=== PATIENT | female | born 1995 | race Caucasian/White ===

== ENCOUNTER 2017-11-23 08:13 | Inpatient (IN) ==
[2017-11-23] MEDS ORDERED: Famotidine 20 MG/2 ML VIAL IVP PRN (08:19)
[2017-11-23] MEDS ORDERED: Ondansetron 4 MG/2 ML VIAL IVP PRN (08:19)
[2017-11-23] MEDS ORDERED: *HR* Nalbuphine 10 MG/ML AMPUL IVP PRN (08:19)
[2017-11-23] MEDS ORDERED: Metoclopramide 10 MG/2 ML VIAL IVP PRN (08:19)
[2017-11-23] MEDS ORDERED: Ringers Solution, Lactated 1,000 ML IVC SCH (08:30)
[2017-11-23] MEDS: miSOPROStol 25 MCG TABLET PO PRN ×2 (09:17→13:40)
[2017-11-23 09:42] LABS: Basophils % 0.2 %; Eosinophils % 0.3 %; Hematocrit 36.1 % (35.3-44.9); Hemoglobin 12.2 g/dL (11.5-15.4); Immature Granulocytes % 0.8 % (0-4); Lymphocytes # 1.4 K/mcL (0.6-4.6); Mean Corpuscular HGB Conc 33.8 g/dL (31.6-35.5); Mean Corpuscular Hemoglobin 27.7 pg (28.0-33.3); Mean Platelet Volume 11.6 fL (9.4-12.4); Monocytes % 7.9 %; Neutrophils # 10.3 K/mcL (1.6-8.9); Platelet Count 200 K/mcL (140-400); Red Cell Distribution Width 12.8 % (11.5-14.5); Segmented Neutrophils % 79.8 %
[2017-11-23 10:23] LABS: Amphetamine Screen,Urine Negative ng/mL (Cutoff=1000); Barbiturate Screen,Urine Negative ng/mL (Cutoff=200); Benzodiazepines Screen,Urine Negative ng/mL (Cutoff=200); Cannabinoid Screen,Urine Positive ng/mL (Cutoff = 50); Cocaine Screen,Urine Negative ng/mL (Cutoff= 300); Opiate Screen,Urine Negative ng/mL (Cutoff=300); Phencyclidine Screen,Urine Negative ng/mL (Cutoff=25)
[2017-11-23] MEDS ORDERED: Aminoglycoside Consult 1 EACH MC ONE (12:01)
[2017-11-23] MEDS ORDERED: Lidocaine -MPF 1% 5 ML AMPUL ONE (19:26)
[2017-11-23] MEDS ORDERED: Epidural Premix (fent/bupiv) 110 ML EP SCH (19:30)
--- NOTE | 2017-11-23 20:17 | Anesthesia Evaluation PreOp ---
Date of Encounter: 11/23/17 Time of Encounter: 21:30 - Past History Planned Operation: phillip Cardiac History: Denies any Significant Hx Pulmonary History: Smoker, Asthma RECRUITMENT MANAGER History: Denies Any Significant HX Other Medical History: Denies Any Significant HX Anesthesia History: No Prior Anesthetic Complications, Past Anesthesia : Yes Test: Positive Alcohol Use: none Drug use: none, marijuana Medications and Allergies Vit/Iron Fumarate/FA [ Tablet] 1 tab PO DAILY 11/23/17 [History ] Promethazine [Phenergan] 25 mg PO 11/23/17 [History] valACYclovir [Valtrex] 1,000 mg PO BID 11/23/17 [History] 3 Allergy/AdvReac Type Severity Reaction Status Date / Time Penicillins Allergy Rash Verified 11/23/17 08:35 codeine AdvReac Agitated Verified 11/23/17 08:35 - Meds/Allergy Pre-op Review Medications Reviewed: Yes Allergies Reviewed: Yes Beta Blockers on Current Med List: No Anesthesia Results - Labs 11/23/17 08:55 Anesthesia Exam Height: 65 Weight: 195kg NPO (# of Hours): mn Pain Scale: 0 - HEENT Pupil (Motor): Pupils equal Mallampati: II Teeth: Normal Oral Opening: Greater than 3 - RECRUITMENT MANAGER LOC: Oriented RECRUITMENT MANAGER Motor: Normal RUE, Normal LUE, Normal RLE, Normal LLE, Normal Face RECRUITMENT MANAGER Sensory: Normal: RUE, LUE, RLE, LLE, Face - Cardiac Rhythm: Regular Murmur: None JVD: No Carotid Bruit: No - Pulmonary Breath Sounds: bilateral Clear Respiratory Effort: Symmetrical Anesthesia Assess/Plan ASA Score: 2 Modified Winsome Scale for Level of Consciousness: Cooperative, oriented, and tranquil (patient asked if she has safe enviroment at home states yes) Anesthetic Plan: Regional Autologous Blood: No Monitoring Plan: Standard Monitors (states she has a herniated disc at L4 asked pt if she felt safe at home she st)
--- NOTE | 2017-11-23 20:28 | Anesthesia Procedures ---
Date of Encounter: 11/23/17 Time of Encounter: 19:30 Procedures: Anesthesia - Epidural/Spinal Patient ID/Chart reviewed: Yes Patient examined: Yes OB Eval: : 1 OB Eval: Hx Para: 0 OB Eval: Dilated at (cm): 4 OB Eval: Contractions: Non-stressed pattern Consent Obtained: Yes Supplemental Oxygen: None/Room Air Site Prep: Aseptic Technique, Sterile prep and drape, Povidone-Iodine 1% Patient position: upright Amount of Local Anesthetic used: 3 Touhy Needle Gauge: 18 Touhy Needle Depth (cm): 7 Catheter Depth at Skin (cm): 12 Test Dose (1.5% Lido + Epi): Volume given (mls): 3 Test Dose Result: Negative Loading Dose: 0.25% Marcaine (mls): 5 Loading Dose Administered: Thru Catheter Infusion Rate (mls/hr): [address]: Tegaderm, Tape Interspace Used: L3-L4 Loss of Resistance (VERNELL): Yes Blood: No CSF: No Paresthesia: No Vitals + FHT's: stable throughout see nursing notes
--- NOTE | 2017-11-23 21:36 | OB/GYN History & Physical ---
Date of Encounter: 11/23/17 Time of Encounter: 21:34 Assessment and Plan (1) 39 weeks gestation of Current visit: Yes Status: Acute Will admit pt to L&D, plan induction. Pt is pos for GBBS and has pcn allergy. Will begin Vancomycin. sensitivity studies are good for Vancomycin. (2) 39 weeks gestation of Current visit: Yes Status: Acute History of Present Illness Chief complaint: Here for induction of labor HPI: Ms. Barlow is a 22 year old female female presents for induction. complicated by abnormal one hour GCT, didn't get 3 hr GTT but A1C last week was WNL. She reports +GFM, no VB or lof. Past Med Surg Social Fam HX - Past Medical History Source: patient, old records reviewed Medical history: asthma Psychiatric history: anxiety, depression - Past Surgical History Additional surgical history: tonsillectomy and hernia repair - Social History Smoking Status: Current every day smoker Packs per day: 0.25 Smokeless Tobacco Status: No Alcohol use: none Drug use: none, marijuana - Family History Maternal Grandmother Hx Family Medical Disorders: Yes (breast cancer) Obstetrical History - Pregnancies : 1 Medications and Allergies Vit/Iron Fumarate/FA [ Tablet] 1 tab PO DAILY 11/23/17 [History ] Promethazine [Phenergan] 25 mg PO 11/23/17 [History] valACYclovir [Valtrex] 1,000 mg PO BID 11/23/17 [History] 3 Allergy/AdvReac Type Severity Reaction Status Date / Time Penicillins Allergy Rash Verified 11/23/17 08:35 codeine AdvReac Agitated Verified 11/23/17 08:35 Exam - Constitutional Constitutional: well developed, well nourished, no acute distress - HEENT HEENT: EOMI, PERRL - Neck Neck exam: full ROM - Lungs Respiratory exam: CTAB - Cardiovascular Cardiovascular exam: RRR - Abdomen Abdomen: Present: bowel sounds normal Results Result Diagrams: 11/23/17 08:55 Abnormal lab results WBC 12.9 K/mcL (4.3-11.1) H 11/23/17 08:55 MCV 82.0 fL (83.0-100.0) L 11/23/17 08:55 MCH 27.7 pg (28.0-33.3) L 11/23/17 08:55 Neutrophils # 10.3 K/mcL (1.6-8.9) H 11/23/17 08:55 U Marijuana (THC) Screen Positive ng/mL (Cutoff = 50) H 11/23/17 08:55 All other labs normal. - VTE Reasons for not Prescribing Prophylaxis: Treatment not Indicated - Low risk for VTE
--- NOTE | 2017-11-23 22:01 | OB Labor Progress Note ---
Date of Encounter: 11/23/17 Time of Encounter: 18:00 Labor Progress Note - Subjective Subjective: Pt with cramping s/p cytotec # 2. - Cervix Cervix: 3-4/80/-2 - Heart Tones Heart Tones: RNST - Stuckey Stuckey: Irritability - Interventions Interventions: AROM clear - Plan Plan: Expect .
[2017-11-23] MEDS ORDERED: Oxytocin 20 units/ LR 1000 mL 20 UNIT/1,000 ML BAG IVC ONE (23:02)
--- NOTE | 2017-11-24 00:50 | OB/GYN Procedure Note ---
Delivery - Delivery Date: 11/24/17 Provider: Jeff Morales Intrapartum events: none Delivery induction: AROM Delivery monitor: internal FHT, internal uterine Anesthesia: epidural Quantitated Blood Loss: 450 - Infant (s) Infant A Delivery Date: 11/24/17 Infant Delivery Time: 00:06 Presentation: vertex Position: LEISA Route of delivery: Gender: Male Viability: Viable Pounds: 8 Ounces: 4 at 1 minute: 8 at 5 mins: 8 Shoulder Dystocia: not encountered Specimens collected: cord blood Placenta: spontaneous Cord: 3 umbilical vessels - Repair Episiotomy: none Laceration Description: Perineal - 2nd Degree - Complications Delivery complications: none - Comments Comments: Pt s/p of liveborn male 8lb 4oz with apgars 8 at 1 min and 8 at 5 min. Pt had spontaneous delivery of normal placenta with 3 vc. 2 nd degree laceration repaired with 3-0 Vicryl under epidural anesthesia. EBL 450cc. MSF noted at AROM. Resp therapy and nursery personnel in attendance at delivery.
[2017-11-24] MEDS ORDERED: Measles/Mumps/Rubella Vacc 0.5 ML VIAL SQ PRN (02:31)
[2017-11-24] MEDS ORDERED: Oxytocin 20 units/ LR 1000 mL 20 UNIT/1,000 ML BAG IVC SCH (02:31)
[2017-11-24] MEDS ORDERED: Rho Immune Globulin 1,500 UNIT SYRINGE IM PRN (02:31)
[2017-11-24 06:58] LABS: Basophils % 0.1 %; Hematocrit 28.5 % (35.3-44.9); Hemoglobin 9.7 g/dL (11.5-15.4); Immature Granulocytes % 0.5 % (0-4); Lymphocytes % 7.2 %; Mean Corpuscular Hemoglobin 27.7 pg (28.0-33.3); Mean Corpuscular Volume 81.4 fL (83.0-100.0); Mean Platelet Volume 11.3 fL (9.4-12.4); Monocytes # 1.1 K/mcL (0.0-1.3); Monocytes % 7.6 %; Neutrophils # 11.9 K/mcL (1.6-8.9); Platelet Count 173 K/mcL (140-400); Segmented Neutrophils % 84.6 %
[2017-11-24] MEDS: valACYclovir 500 MG TABLET PO SCH ×2 (08:53→20:51)
[2017-11-24] MEDS: Prenatal Vit/FA 1 EACH TABLET PO SCH (08:53)
[2017-11-24] MEDS: Acetaminophen 325 MG TABLET PO PRN ×2 (12:53→20:51)
[2017-11-25] MEDS: Acetaminophen 325 MG TABLET PO PRN (03:02)
[2017-11-25 07:29] VITALS: BP 113/69
[2017-11-25] MEDS: Prenatal Vit/FA 1 EACH TABLET PO SCH (08:53)
[2017-11-25] MEDS: valACYclovir 500 MG TABLET PO SCH (08:54)
--- NOTE | 2017-11-25 09:07 | Discharge Summary ---
Date of Encounter: 11/25/17 Time of Encounter: 09:05 - Discharge Diagnosis (1) Vaginal delivery Priority: Primary Status: Acute Comments: Day 1 S/P vaginal delivery Pain well controlled Lochia is light and without clots Tolerating regular diet Urinating and passing flatus without difficulty Bottle feeding is going well Discharge today (2) Anemia of the puerperium Priority: Secondary Status: Acute Comments: Asymptomatic, VSS, denies lightheadedness, dizziness, and chest pain - Discharge Medications Prescriptions: Docusate [Colace] 100 mg PO BID #30 capsule Ferrous Sulfate 325 mg PO DAILY #60 tablet Ibuprofen [Ibu] 600 mg PO Q6H PRN #30 tablet PRN Reason: cramping / pain Home Medications: Acetaminophen [Tylenol] 650 mg PO Q6HR PRN tablet 11/25/17 [Rx] Benzocaine/Menthol [place] [Dermoplast [place]] 56 appl TP QID PRN #1 aerosol [Rx] Docusate [Colace] 100 mg PO BID #30 capsule 11/25/17 [Rx] Ferrous Sulfate 325 mg PO DAILY #60 tablet 11/25/17 [Rx] Ibuprofen [Ibu] 600 mg PO Q6H PRN #30 tablet 11/25/17 [Rx] Allergies/Adverse Reactions: 3 Allergy/AdvReac Type Severity Reaction Status Date / Time Penicillins Allergy Rash Verified 11/23/17 08:35 codeine AdvReac Agitated Verified 11/23/17 08:35 Data Procedures and tests throughout hospitalization: Laboratory Tests 11/23/17 11/23/17 11/24/17 08:55 08:55 06:41 WBC 12.9 H 14.0 H RBC 4.40 3.50 L Hgb 12.2 9.7 L D Hct 36.1 28.5 L MCV 82.0 L 81.4 L MCH 27.7 L 27.7 L MCHC 33.8 34.0 RDW 12.8 13.0 Plt Count 200 173 MPV 11.6 11.3 Immature Gran % 0.8 0.5 Seg Neutrophils % 79.8 84.6 Lymphocytes % 11.0 7.2 Monocytes % 7.9 7.6 Eosinophils % 0.3 0.0 Basophils % 0.2 0.1 Neutrophils # 10.3 H 11.9 H Lymphocytes # 1.4 1.0 Monocytes # 1.0 1.1 Eosinophils # 0.0 0.0 Basophils # 0.0 0.0 Urine Opiates Screen Negative Ur Barbiturates Screen Negative Ur Phencyclidine Scrn Negative Ur Amphetamines Screen Negative U Benzodiazepines Scrn Negative Urine Cocaine Screen Negative U Marijuana (THC) Screen Positive H Ur Drug Screen Interp See Below Date of admission: 11/23/17 08:13 Primary care physician: Jeff Morales MD Consults: 11/24/17 02:31 Consult to Stallion Manager [CONS] Routine Comment: Vaginal delivery, consult needed Consult to Quality Compliance Coordinator [CONS] Routine Reason for SW Consult: thc Discharging clinician: Sabrina Powell Anticipated date of discharge: 11/25/17 - Patient Status Disposition: Home, Self-Care Condition: Good Functional capacity at discharge: independent ambulation Overall status at discharge: patient is progressing back to baseline - Discharge Instructions Follow Up With: Jeff Morales MD [Primary Care Provider] - - Diet and Activity Activity: increase activity as tolerated Diet: regular diet Hospital Course Reason for admission: IUP at term Delivery: Episiotomy: none Laceration: 2nd degree Other procedures: none complications: none Discharge diagnosis: IUP at term delivered baby: male Time spent discussing smoking cessation with patient: 3 to 10 minutes Time Attestation: Total time spent providing and/or coordinating discharge services: Time Spent: Less than 30 minutes Exam - Constitutional Vitals: Temp Pulse Resp BP Pulse Ox 98.5 F 67 12 113/69 98 11/25/17 07:27 11/25/17 07:27 11/25/17 07:27 11/25/17 07:27 11/25/17 07:27 General appearance IM: cooperative, A&O X 3, pleasant - Respiratory Respiratory exam: Present: CTAB - Cardiovascular Cardiovascular exam IM: Present: RRR, +S1, +S2 - GI/Abdominal GI/Abdominal exam IM: normal bowel sounds, soft - Uterine Tone: Firm Uterus Position: 1 Finger Below Umbilicus, Midline - Extremities Exam Extremities exam IM: Present: normal capillary refill, normal inspection, radial pulses palpable and symmetrical - Neurological Exam Neurological exam: alert, oriented X3, reflexes normal
[2017-11-25] MEDS ORDERED: Benzocaine/Menthol 56 GM AEROSOL SPRAY TP PRN (09:11)
== END 2017-11-25 12:02 | disposition home or self-care (01) | DRG 775 ==
LOC: 1NENULAB 08:13 → 1NENUOBS 11-24 02:22
PROVIDERS: ADMIT Obstetrics & Gynecology; ATTEND Obstetrics & Gynecology

== ENCOUNTER 2020-10-24 04:46 | Observation (INO) ==
[2020-10-24] MEDS ORDERED: Naloxone 0.4 MG/ML INJ IVP PRN (05:25)
[2020-10-24] MEDS ORDERED: Acetaminophen 325 MG TABLET PO PRN (06:00)
[2020-10-24 06:34] LABS: Basophils % 0.1 %; Hematocrit 32.5 % (35.3-44.9); Hemoglobin 11.1 g/dL (11.5-15.4); Immature Granulocytes % 0.4 % (0-4); Lymphocytes # 1.2 K/mcL (0.6-4.6); Lymphocytes % 8.3 %; Mean Corpuscular HGB Conc 34.2 g/dL (31.6-35.5); Mean Corpuscular Hemoglobin 29.2 pg (28.0-33.3); Mean Corpuscular Volume 85.5 fL (83.0-100.0); Monocytes # 0.9 K/mcL (0.0-1.3); Monocytes % 6.7 %; Neutrophils # 11.8 K/mcL (1.6-8.9); Platelet Count 157 K/mcL (140-400); Red Cell Distribution Width 12.9 % (11.5-14.5); Segmented Neutrophils % 84.5 %
[2020-10-24 06:56] LABS: Alanine Aminotransferase 120 Units/L (7-52); Albumin 3.2 g/dL (3.5-5.7); Albumin/Globulin Ratio 1.3 (1.1-2.2); Alkaline Phosphatase 51 Units/L (34-104); Aspartate Amino Transferase 80 Units/L (13-39); BUN/Creatinine Ratio 14 (6-26); Bilirubin,Total 0.8 mg/dL (0.3-1.0); Blood Urea Nitrogen 6 mg/dL (6-20); Calcium 8.7 mg/dL (8.6-10.3); Carbon Dioxide 20 mEq/L (23-29); Chloride 107 mEq/L (98-107); Globulin 2.4 g/dL (2.4-3.5); Glucose 104 mg/dL (70-105); Osmolality,Calculated 276 (280-300); Potassium 3.4 mEq/L (3.5-5.1); Sodium 134 mEq/L (136-145); Total Protein 5.6 g/dL (6.4-8.9); eGFR For African Americans > 60 (> 60); eGFR For Non-African Americans > 60 (> 60)
[2020-10-24] MEDS: cefTRIAXone 1,000 MG in 0.9 % Sodium Chloride Mini Bag 100 ML IVPB SCH (09:25)
[2020-10-25 02:54] LABS: Hematocrit 33.2 % (35.3-44.9); Hemoglobin 11.2 g/dL (11.5-15.4); Mean Corpuscular HGB Conc 33.7 g/dL (31.6-35.5); Mean Corpuscular Hemoglobin 28.6 pg (28.0-33.3); Mean Corpuscular Volume 84.7 fL (83.0-100.0); Mean Platelet Volume 10.2 fL (9.4-12.4); Platelet Count 160 K/mcL (140-400); Red Blood Count 3.92 M/mcL (3.82-4.97); Red Cell Distribution Width 13.1 % (11.5-14.5); White Blood Count 7.6 K/mcL (4.3-11.1)
[2020-10-25 03:13] LABS: BUN/Creatinine Ratio 16 (6-26); Blood Urea Nitrogen 7 mg/dL (6-20); Calcium 8.5 mg/dL (8.6-10.3); Carbon Dioxide 22 mEq/L (23-29); Chloride 109 mEq/L (98-107); Glucose 128 mg/dL (70-105); Osmolality,Calculated 284 (280-300); Potassium 3.4 mEq/L (3.5-5.1); Sodium 137 mEq/L (136-145); eGFR For African Americans > 60 (> 60); eGFR For Non-African Americans > 60 (> 60)
[2020-10-25] MEDS: cefTRIAXone 1,000 MG in 0.9 % Sodium Chloride Mini Bag 100 ML IVPB SCH (08:43)
[2020-10-25 22:11] LABS: Amorphous Sediment,Urine Few per hpf (None-Few); Bacteria,Urine Few per hpf (None-Few); Bilirubin,Urine Negative (Negative); Blood,Urine Negative (Negative); Clarity,Urine Ex.Turbid (Clear); Color,Urine Yellow (Yellow); Glucose,Urine (UA) Normal (Normal); Ketones,Urine Negative (Negative); Leukocyte Esterase,Urine Moderate (Negative); Nitrite,Urine Negative (Negative); Protein,Urine Negative (Neg-Trace); RBC,Urine 0-3 per hpf (0-3); Specific Gravity,Urine 1.017 (1.010-1.025); Squamous Epithelial Cell,Urine Few per hpf (None-Few); WBC,Urine 0-3 per hpf (0-3)
[2020-10-26 05:58] LABS: Hematocrit 36.2 % (35.3-44.9); Mean Corpuscular HGB Conc 33.1 g/dL (31.6-35.5); Mean Corpuscular Hemoglobin 28.3 pg (28.0-33.3); Mean Corpuscular Volume 85.4 fL (83.0-100.0); Mean Platelet Volume 10.4 fL (9.4-12.4); Platelet Count 184 K/mcL (140-400); Red Blood Count 4.24 M/mcL (3.82-4.97); Red Cell Distribution Width 13.1 % (11.5-14.5); White Blood Count 8.6 K/mcL (4.3-11.1)
[2020-10-26 06:23] LABS: BUN/Creatinine Ratio 18 (6-26); Blood Urea Nitrogen 7 mg/dL (6-20); Calcium 8.8 mg/dL (8.6-10.3); Carbon Dioxide 19 mEq/L (23-29); Chloride 108 mEq/L (98-107); Glucose 93 mg/dL (70-105); Osmolality,Calculated 280 (280-300); Potassium 3.6 mEq/L (3.5-5.1); Sodium 136 mEq/L (136-145); eGFR For African Americans > 60 (> 60); eGFR For Non-African Americans > 60 (> 60)
[2020-10-26] MEDS: cefTRIAXone 1,000 MG in 0.9 % Sodium Chloride Mini Bag 100 ML IVPB SCH (07:52)
[2020-10-26] MEDS: Prenatal Vit/FA 1 EACH TABLET PO SCH (07:52)
[2020-10-26 14:35] LABS: Amphetamine Screen,Urine Positive ng/mL (Cutoff=1000); Barbiturate Screen,Urine Negative ng/mL (Cutoff=200); Benzodiazepines Screen,Urine Negative ng/mL (Cutoff=200); Cannabinoid Screen,Urine Negative ng/mL (Cutoff = 50); Cocaine Screen,Urine Negative ng/mL (Cutoff= 300); Opiate Screen,Urine Negative ng/mL (Cutoff=300); Phencyclidine Screen,Urine Negative ng/mL (Cutoff=25)
[2020-10-27 05:22] LABS: Hematocrit 33.9 % (35.3-44.9); Hemoglobin 11.7 g/dL (11.5-15.4); Mean Corpuscular HGB Conc 34.5 g/dL (31.6-35.5); Mean Corpuscular Hemoglobin 28.9 pg (28.0-33.3); Mean Corpuscular Volume 83.7 fL (83.0-100.0); Mean Platelet Volume 10.6 fL (9.4-12.4); Platelet Count 179 K/mcL (140-400); Red Blood Count 4.05 M/mcL (3.82-4.97); Red Cell Distribution Width 12.9 % (11.5-14.5); White Blood Count 8.9 K/mcL (4.3-11.1)
[2020-10-27 05:34] LABS: BUN/Creatinine Ratio 17 (6-26); Blood Urea Nitrogen 8 mg/dL (6-20); Calcium 8.5 mg/dL (8.6-10.3); Carbon Dioxide 21 mEq/L (23-29); Chloride 109 mEq/L (98-107); Glucose 118 mg/dL (70-105); Osmolality,Calculated 283 (280-300); Potassium 3.4 mEq/L (3.5-5.1); Sodium 137 mEq/L (136-145); eGFR For African Americans > 60 (> 60); eGFR For Non-African Americans > 60 (> 60)
[2020-10-27] MEDS: cefTRIAXone 1,000 MG in 0.9 % Sodium Chloride Mini Bag 100 ML IVPB SCH (08:24)
[2020-10-27] MEDS: Prenatal Vit/FA 1 EACH TABLET PO SCH (08:24)
[2020-10-27 11:45] VITALS: BP 129/86
== END 2020-10-27 12:26 | disposition home or self-care (01) ==
LOC: 3BNU → SUATTDRO 04:46
PROVIDERS: ADMIT Internal Medicine; ATTEND Registered Nurse

== ENCOUNTER 2021-03-12 08:36 | Inpatient (IN) ==
[2021-03-12 06:33] LABS: Amphetamine Screen,Urine Positive ng/mL (Cutoff=1000); Barbiturate Screen,Urine Negative ng/mL (Cutoff=200)
[2021-03-12 06:34] LABS: Benzodiazepines Screen,Urine Negative ng/mL (Cutoff=300); Cannabinoid Screen,Urine Positive ng/mL (Cutoff = 50); Cocaine Screen,Urine Negative ng/mL (Cutoff= 300); Opiate Screen,Urine Negative ng/mL (Cutoff=300); Phencyclidine Screen,Urine Negative ng/mL (Cutoff=25)
[~2021-03-12 08:36] MED LIST: *HR* Nalbuphine 10 MG/ML AMPUL IV PRN; Famotidine 20 MG/2 ML VIAL IVP PRN; Lidocaine 1% 20 ML MDV ID PRN; Metoclopramide 10 MG/2 ML VIAL IVP PRN; Naloxone 0.4 MG/ML INJ IVP PRN; Ondansetron 4 MG/2 ML VIAL IVP PRN
[2021-03-12] MEDS ORDERED: Ringers Solution, Lactated 1,000 ML IVC SCH (08:45)
[2021-03-12 09:32] LABS: Basophils % 0.3 %; Eosinophils # 0.1 K/mcL (0.0-0.6); Eosinophils % 0.5 %; Hemoglobin 13.2 g/dL (11.5-15.4); Immature Granulocytes % 0.4 % (0-4); Lymphocytes # 2.5 K/mcL (0.6-4.6); Lymphocytes % 22.7 %; Mean Corpuscular Hemoglobin 27.8 pg (28.0-33.3); Mean Corpuscular Volume 84.2 fL (83.0-100.0); Mean Platelet Volume 11.9 fL (9.4-12.4); Monocytes # 0.8 K/mcL (0.0-1.3); Monocytes % 7.5 %; Neutrophils # 7.5 K/mcL (1.6-8.9); Platelet Count 173 K/mcL (140-400); Red Blood Count 4.75 M/mcL (3.82-4.97); Red Cell Distribution Width 13.1 % (11.5-14.5); Segmented Neutrophils % 68.6 %; White Blood Count 10.9 K/mcL (4.3-11.1)
[2021-03-12 09:41] LABS: Protein/Creatinine Ratio,Urine 0.2 mg/mg (0.00-0.20)
[2021-03-12] MEDS ORDERED: Ropivacaine/PF 0.2% 20 ML VIAL EP ONE (09:47)
[2021-03-12] MEDS ORDERED: *HR* FentaNYL (PF) 100 MCG/2 ML VIAL EP ONE (09:47)
[2021-03-12] MEDS ORDERED: EPHEDrine 50 MG/ML VIAL IVP PRN (09:47)
[2021-03-12 09:52] LABS: Alanine Aminotransferase 101 Units/L (7-52); Aspartate Amino Transferase 79 Units/L (13-39); BUN/Creatinine Ratio 16 (6-26); Blood Urea Nitrogen 12 mg/dL (6-20); Lactate Dehydrogenase 182 Units/L (140-271); Uric Acid 6.4 mg/dL (2.3-7.6); eGFR For African Americans > 60 (> 60); eGFR For Non-African Americans > 60 (> 60)
[2021-03-12] MEDS ORDERED: Epidural Premix (fent/bupiv) 110 ML EP ONE (09:53)
[2021-03-12] MEDS ORDERED: Epidural Premix (fent/bupiv) 110 ML EP SCH (10:00)
[2021-03-12] MEDS ORDERED: Oxytocin 20 units/ LR 1000 mL 20 UNIT/1,000 ML BAG IVC SCH ×2 (11:00→13:28)
[2021-03-12] MEDS ORDERED: Oxytocin 20 units/ LR 1000 mL 20 UNIT/1,000 ML BAG IVC ONE (11:14)
[2021-03-12] MEDS ORDERED: Benzocaine/Menthol 56 GM AEROSOL SPRAY TP PRN (13:28)
[2021-03-12] MEDS ORDERED: Ondansetron ODT 4 MG TAB.RAPDIS SL PRN (13:28)
[2021-03-12] MEDS ORDERED: Lanolin 7 G OINT...G. TP PRN (13:28)
[2021-03-12] MEDS ORDERED: Measles/Mumps/Rubella Vacc 0.5 ML VIAL SQ PRN (13:28)
[2021-03-12] MEDS ORDERED: Rho Immune Globulin 1,500 UNIT SYRINGE IM PRN (13:28)
[2021-03-12] MEDS: Ibuprofen 600 MG TABLET PO SCH ×2 (18:15→21:44)
[2021-03-12] MEDS: Acetaminophen 325 MG TABLET PO SCH ×2 (18:15→21:44)
[2021-03-13] MEDS: Ibuprofen 600 MG TABLET PO SCH ×4 (03:51→20:46)
[2021-03-13 04:12] LABS: Basophils % 0.2 %; Eosinophils # 0.1 K/mcL (0.0-0.6); Eosinophils % 0.6 %; Hemoglobin 11.7 g/dL (11.5-15.4); Immature Granulocytes % 0.4 % (0-4); Lymphocytes # 2.2 K/mcL (0.6-4.6); Lymphocytes % 23.2 %; Mean Corpuscular HGB Conc 34.4 g/dL (31.6-35.5); Mean Corpuscular Volume 84.2 fL (83.0-100.0); Mean Platelet Volume 11.6 fL (9.4-12.4); Monocytes # 0.7 K/mcL (0.0-1.3); Monocytes % 7.8 %; Neutrophils # 6.5 K/mcL (1.6-8.9); Platelet Count 150 K/mcL (140-400); Red Blood Count 4.04 M/mcL (3.82-4.97); Red Cell Distribution Width 12.9 % (11.5-14.5); Segmented Neutrophils % 67.8 %; White Blood Count 9.5 K/mcL (4.3-11.1)
[2021-03-13] MEDS: Prenatal Vit/FA 1 EACH TABLET PO SCH (08:17)
[2021-03-13] MEDS: Acetaminophen 325 MG TABLET PO SCH ×3 (08:17→20:46)
[2021-03-13] MEDS ORDERED: NON-FORMULARY MEDICATION 1 EACH EACH (Prenat 115/Iron Fum/Folic/Dss [Prenatal 19 Tablet] 1 PO SCH (09:00)
[2021-03-13 21:09] VITALS: O2SAT 98
[2021-03-14] MEDS: Ibuprofen 600 MG TABLET PO SCH (03:26)
[2021-03-14] MEDS: Acetaminophen 325 MG TABLET PO SCH (03:26)
[2021-03-14] MEDS: Prenatal Vit/FA 1 EACH TABLET PO SCH (07:33)
[2021-03-14 08:54] VITALS: BP 137/88; TEMP 98.2
[2021-03-14 12:52] VITALS: PULSE 78
== END 2021-03-14 12:54 | disposition home or self-care (01) | DRG 806 ==
LOC: 1NENULAB → 1NENUOBS 15:00
PROVIDERS: ADMIT Obstetrics & Gynecology; ATTEND Obstetrics & Gynecology